=== PATIENT | male | born 2000 | race Caucasian/White ===

== ENCOUNTER 2021-05-05 14:13 | Emergency (ER) | payer OTHER, SELFPAY ==
--- NOTE | ~2021-05-05 | XR_ITS ---
EXAMINATION: XR shoulder RT min 2V DATE: 05/05/2021 14:50 INDICATION: Right shoulder injury. TECHNIQUE: 3 views of right shoulder were obtained. COMPARISON: None. FINDINGS: There is anterior dislocation of humeral head with respect to glenoid. No fracture. Acromio clavicular joint is normal. IMPRESSION: 1. Anterior right shoulder dislocation. Reviewed, dictated and finalized at location B. 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
--- NOTE | ~2021-05-05 | XR_ITS ---
EXAMINATION: XR shoulder RT min 2V DATE: 05/05/2021 15:16 INDICATION: Right shoulder dislocation status post reduction. TECHNIQUE: 3 views of right shoulder were obtained. COMPARISON: Right shoulder radiographs at 2:44 PM FINDINGS: Bone alignment is normal. No fracture. Joint spaces are well maintained. IMPRESSION: 1. Normal right shoulder. Reviewed, dictated and finalized at location B. 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 Normal right shoulder.
[2021-05-05 14:19] VITALS: BP 97/54; PULSE 84; RESP 20; TEMP 36.1; O2SAT 97
--- NOTE | 2021-05-05 14:44 | ED.GENADULT ---
HPI - General Adult General Chief complaint: Extremity Injury, Upper Stated complaint: Dislocated R shoulder Time Seen by Provider: 05/05/21 14:37 History of Present Illness HPI narrative: 20-year-old male presents to the emergency department for evaluation of right shoulder pain. Patient does have a significant history of bilateral shoulder dislocations. Patient reports he has had 7 dislocations on the right and 2 dislocations on the left. States today he was doing weightlifting and felt pain in his right shoulder. Patient does suspect that he has a dislocation. Patient does have a deformity of the humeral head. Related Data Allergies Allergy/AdvReac Type Severity Reaction Status Date / Time Penicillins Allergy Swelling Verified 05/05/21 14:38 of Lip/Tongue/Throat Course Course Emergency Course: 20-year-old male presenting to the emergency department for evaluation of a right shoulder dislocation. Initial shoulder x-ray did reveal an anterior shoulder dislocation. Patient's shoulder was reduced using fentanyl analgesic as described in the procedure note. Repeat shoulder x-ray shows a reduced right shoulder. Patient was placed in a shoulder immobilizer. Patient was encouraged to have close follow-up with orthopedics. Patient does not have a local orthopedics and he was referred to Dr. Lees. Clinical impression is right shoulder dislocation Patient disposition is discharged to home in improved condition Vital Signs Vital signs: Vital Signs Temperature 97 F L 05/05/21 14:19 Pulse Rate 84 05/05/21 14:19 Respiratory Rate 20 05/05/21 14:19 Blood Pressure 97/54 L 05/05/21 14:19 Pulse Oximetry 97 05/05/21 14:19 Temperature 97 F L 05/05/21 14:19 Pulse Rate 84 05/05/21 14:19 Respiratory Rate 20 05/05/21 14:19 Blood Pressure 97/54 L 05/05/21 14:19 Pulse Oximetry 97 05/05/21 14:19 Procedures Orthopedic Joint Reduction Joint #1: Orthopedic Joint Reduction Time: 15:00 Time Out Performed: Yes Side: right Joint Reduction Location: shoulder Analgesia: none (100 mcg fentanyl IV) Pre-Procedure Neuro Vascular Exam: normal Shoulder Technique Used (if applicable): traction/counter-traction and external rotation Post-reduction neuro exam: intact Post-reduction vascular: intact Post Reduction X-Ray Obtained: Yes Post Reduction X-Ray Results: reduced Splint Applied: Yes Patient Tolerated Procedure: well Medical Decision Making Differential Diagnosis Differential Diagnosis: Shoulder dislocation versus shoulder fracture Vital Signs Vital Signs: Vital Signs Temperature 97 F L 05/05/21 14:19 Pulse Rate 84 05/05/21 14:19 Respiratory Rate 20 05/05/21 14:19 Blood Pressure 97/54 L 05/05/21 14:19 Pulse Oximetry 97 05/05/21 14:19 Temperature 97 F L 05/05/21 14:19 Pulse Rate 84 05/05/21 14:19 Respiratory Rate 20 05/05/21 14:19 Blood Pressure 97/54 L 05/05/21 14:19 Pulse Oximetry 97 05/05/21 14:19 Imaging Data Radiologist's impression: Impressions Shoulder X-Ray 05/05/21 14:51 IMPRESSION: 1. Anterior right shoulder dislocation. Shoulder X-Ray 05/05/21 15:17 IMPRESSION: 1. Normal right shoulder. Discharge Plan Discharge Clinical Impression: Anterior dislocation of right shoulder Qualifiers: Encounter type: initial encounter Qualified Code(s): S43.014A - Anterior dislocation of right humerus, initial encounter Patient Disposition: Home, Self-Care Condition: Improved Instructions: Antibiotic Form, Shoulder Dislocation (ED), Shoulder Immobilizer (ED) Additional Instructions: Shoulder immobilizer as directed until cleared by your physician. Have close follow-up with orthopedics. Tylenol and ibuprofen for pain control. Follow-up/Referrals: Anthony Lees MD [Physician] - PHYSICIAN NOT ON STAFF,NONSTAFF [Primary Care Provider] -
[2021-05-05] MEDS: fentaNYL CITRATE INJ (*CRX) 100 MCG/2 ML VIAL IV PUSH (14:53)
[2021-05-05 16:07] VITALS: BP 132/69; PULSE 78; RESP 12; O2SAT 96
== END 2021-05-05 16:08 | disposition home or self-care (01) ==
LOC: ANHED 16:00
PROVIDERS: Emergency Provider Emergency Medicine
DX: S43.014A Anterior dislocation of right humerus, initial encounter (principal); Z88.0 Allergy status to penicillin; X58.XXXA Exposure to other specified factors, initial encounter
CPT/HCPCS: 23650; 73030; 96374; 99285; A4565; J3010